=== PATIENT | male | born 1950 | race Caucasian/White ===

== ENCOUNTER 2021-03-11 11:30 | Inpatient (IN) | payer MEDICARE, OTHER ==
[~2021-03-11] VITALS: Ht 172.7 cm; Wt 83.9 kg
[2021-03-11] MEDS ORDERED: SODIUM CHLORIDE 0.9% 1,000 ML IV ONE (11:45)
[2021-03-11 13:12] LABS: HEMATOCRIT. 53.2 % (42.0-52.0); HEMOGLOBIN. 16.7 g/dL (14.0-18.0); MEAN CORPUSCULAR VOLUME 82.8 fL (80.0-94.0); MEAN PLATELET VOLUME 8.8 fl (7.4-10.4); PLATELET 636 x1000/uL (130-400); RED BLOOD CELL COUNT 6.42 mill/uL (4.7-6.1); RED CELL DISTRIBUTION WIDTH 15.2 % (11.6-14.6)
[2021-03-11 13:12] LABS: CLARITY URINE CLEAR (CLEAR); COLOR URINE DARK YELLOW (YELLOW); KETONES URINE 1+ (NEGATIVE); LEUKOCYTE ESTERASE URINE NEGATIVE (NEGATIVE); NITRITE URINE NEGATIVE (NEGATIVE); OCCULT BLOOD URINE NEGATIVE (NEGATIVE); PROTEIN URINE 1+ (NEGATIVE); SPECIFIC GRAVITY URINE 1.027 (1.005-1.030)
[2021-03-11 13:36] LABS: PLATELET ESTIMATE INCREASED
[2021-03-11 13:41] LABS: *AMPHETAMINES SCREEN URINE NEGATIVE (NEGATIVE); *BARBITURATES SCREEN URINE NEGATIVE (NEGATIVE)
[2021-03-11 13:42] LABS: *BENZODIAZEPINES SCREEN URINE NEGATIVE (NEGATIVE); *COCAINE SCREEN URINE NEGATIVE (NEGATIVE); CANNABINOID URINE SCREEN NEGATIVE (NEGATIVE); METHADONE URINE SCREEN NEGATIVE (NEGATIVE); OPIATES URINE SCREEN NEGATIVE (NEGATIVE); PHENCYCLIDINE URINE SCREEN NEGATIVE (NEGATIVE)
[2021-03-11] MEDS ORDERED: SODIUM CHLORIDE 0.9% 1000ML BAG (SEPSIS BOLUS) IV ONE (15:15)
[2021-03-11] MEDS ORDERED: VANCOMYCIN 1 G PREMIX 200 ML IV NR (15:15)
[2021-03-11] MEDS ORDERED: SODIUM CHLORIDE 0.9% 2,550 ML IV SCH (15:15)
[2021-03-11] MEDS ORDERED: PIPERACILLIN/TAZ 3.375G PREMIX 50 ML IV NR (15:15)
[2021-03-11] MEDS ORDERED: CLONIDINE 0.1MG TABLET PO PRN (16:00)
[2021-03-11] MEDS ORDERED: MAGNESIUM/ALUMINUM HYDROXIDE/SIMETHICONE 30ML UDC PO PRN (16:00)
[2021-03-11] MEDS ORDERED: ACETAMINOPHEN 325MG TABLET PO PRN ×2 (16:00)
[2021-03-11] MEDS ORDERED: ONDANSETRON HCL 4MG/2ML INJ IV PRN (16:00)
[2021-03-11] MEDS ORDERED: HYDROCODONE/ACETAMINOPHEN 5/325MG TABLET PO PRN (16:00)
[2021-03-11] MEDS ORDERED: GUAIFENESIN 200MG/10ML SUGAR FREE UDC PO PRN (16:00)
[2021-03-11] MEDS ORDERED: NALOXONE HCL 0.4MG/ML VIAL IV PRN (16:15)
[2021-03-11 16:46] LABS: CHLORIDE 118 mEq/L (98-107)
[2021-03-11 16:51] LABS: ETHANOL BLOOD < 10 mg/dL
[2021-03-11 16:55] LABS: CREATINE KINASE 563 IU/L (39-308)
[2021-03-11] MEDS: ENOXAPARIN 40MG/0.4ML SYR SUBCUT SCH (17:59)
[2021-03-11] MEDS ORDERED: LORAZEPAM 2MG/ML CPJ IV STA (20:18)
[2021-03-12 05:35] LABS: BASOPHILS % 0.2 % (0.0-2.0); EOSINOPHILS % 0.1 % (0.0-5.0); HEMATOCRIT. 51.5 % (42.0-52.0); HEMOGLOBIN. 16.4 g/dL (14.0-18.0); LYMPHOCYTES % 7.2 % (20.0-50.0); MEAN CORPUSCULAR HEMOGLOBIN 26.1 pg (28.0-32.0); MEAN CORPUSCULAR VOLUME 81.8 fL (80.0-94.0); MEAN PLATELET VOLUME 8.7 fl (7.4-10.4); MONOCYTES % 5.9 % (2.0-8.0); NEUTROPHILS % 86.6 % (40.0-76.0); PLATELET 566 x1000/uL (130-400); RED BLOOD CELL COUNT 6.29 mill/uL (4.7-6.1); RED CELL DISTRIBUTION WIDTH 14.8 % (11.6-14.6)
[2021-03-12 05:43] LABS: PHOSPHORUS 3.2 mg/dL (2.5-4.9)
[2021-03-12] MEDS: ENOXAPARIN 40MG/0.4ML SYR SUBCUT SCH (17:05)
[2021-03-12] MEDS ORDERED: PIPERACILLIN/TAZOBACTAM 3.375 G in DEXTROSE 5% WATER 50 ML IV SCH (23:30)
[2021-03-13] MEDS: VANCOMYCIN 1250MG in DEXTROSE 5% WATER 250ML IV SCH ×2 (02:47→21:28)
[2021-03-13 04:00] VITALS: BP 153/84
[2021-03-13 05:29] VITALS: BP 153/84
[2021-03-13 05:58] LABS: VITAMIN B12 SERUM 681 pg/mL (211-911)
[2021-03-13] MEDS: PIPERACILLIN/TAZOBACTAM 3.375 G in DEXTROSE 5% WATER 50 ML IV SCH ×3 (06:36→21:29)
[2021-03-13 08:00] VITALS: BP 140/78
[2021-03-13 12:00] VITALS: BP 149/74
[2021-03-13 16:00] VITALS: BP 127/73
[2021-03-13] MEDS: ENOXAPARIN 40MG/0.4ML SYR SUBCUT SCH (16:13)
[2021-03-13 20:00] VITALS: BP 121/77
[2021-03-14] VITALS: BP 130/77
[2021-03-14 04:00] VITALS: BP 127/75
[2021-03-14] MEDS: PIPERACILLIN/TAZOBACTAM 3.375 G in DEXTROSE 5% WATER 50 ML IV SCH ×2 (05:45→14:07)
[2021-03-14 08:00] VITALS: BP 126/76
[2021-03-14 12:00] VITALS: BP 106/58
[2021-03-14 16:00] VITALS: BP 147/76
[2021-03-14] MEDS: ENOXAPARIN 40MG/0.4ML SYR SUBCUT SCH (16:22)
[2021-03-14 20:00] VITALS: BP 103/59
[2021-03-14] MEDS ORDERED: DEXTROSE 50% WATER 50ML SYRINGE IV PRN (21:30)
[2021-03-14] MEDS: LINEZOLID 600MG TABLET PO SCH (21:40)
[2021-03-14] MEDS: CEFEPIME 2,000 MG in DEXT 5% WATER 100 ML IV SCH (21:40)
[2021-03-14] MEDS: DEXTROSE 5% WATER 1,000 ML IV SCH (21:42)
[2021-03-14] MEDS: BLOOD SUGAR DIAGNOSTIC STRIP TEST SCH (23:02)
[2021-03-14] MEDS: INSULIN LISPRO 100 UNITS/ML SUBCUT SCH (23:23)
[2021-03-15] VITALS: BP 124/67
[2021-03-15 04:00] VITALS: BP 129/61
[2021-03-15] MEDS: INSULIN LISPRO 100 UNITS/ML SUBCUT SCH ×4 (05:25→21:50)
[2021-03-15] MEDS: BLOOD SUGAR DIAGNOSTIC STRIP TEST SCH ×4 (05:26→21:39)
[2021-03-15] MEDS ORDERED: VANCOMYCIN 750 MG in DEXT 5% WATER 250 ML IV SCH (06:00)
[2021-03-15 08:00] VITALS: BP 133/70
[2021-03-15] MEDS: CEFEPIME 2,000 MG in DEXT 5% WATER 100 ML IV SCH ×2 (09:48→21:39)
[2021-03-15] MEDS: LINEZOLID 600MG TABLET PO SCH ×2 (09:48→21:42)
[2021-03-15] MEDS: DEXTROSE 5% WATER 1,000 ML IV SCH ×2 (09:50→17:45)
[2021-03-15 10:59] LABS: BASOPHILS % 0.6 % (0.0-2.0); EOSINOPHILS % 1.9 % (0.0-5.0); HEMATOCRIT. 47.1 % (42.0-52.0); HEMOGLOBIN. 14.9 g/dL (14.0-18.0); LYMPHOCYTES % 12.2 % (20.0-50.0); MEAN CORPUSCULAR VOLUME 82.1 fL (80.0-94.0); MEAN PLATELET VOLUME 9.2 fl (7.4-10.4); MONOCYTES % 6.2 % (2.0-8.0); NEUTROPHILS % 79.1 % (40.0-76.0); PLATELET 531 x1000/uL (130-400); RED BLOOD CELL COUNT 5.73 mill/uL (4.7-6.1); RED CELL DISTRIBUTION WIDTH 14.8 % (11.6-14.6)
[2021-03-15 11:11] LABS: PHOSPHORUS 2.4 mg/dL (2.5-4.9)
[2021-03-15 12:00] VITALS: BP 114/65
[2021-03-15 16:00] VITALS: BP 129/71
[2021-03-15] MEDS: ENOXAPARIN 40MG/0.4ML SYR SUBCUT SCH (16:34)
[2021-03-15 20:00] VITALS: BP 132/67
[2021-03-16] VITALS: BP 117/66
[2021-03-16 04:00] VITALS: BP 123/71
[2021-03-16] MEDS: INSULIN LISPRO 100 UNITS/ML SUBCUT SCH ×4 (05:43→21:21)
[2021-03-16] MEDS: BLOOD SUGAR DIAGNOSTIC STRIP TEST SCH ×4 (05:44→21:17)
[2021-03-16] MEDS: CEFEPIME 2,000 MG in DEXT 5% WATER 100 ML IV SCH ×2 (09:42→21:19)
[2021-03-16] MEDS: LINEZOLID 600MG TABLET PO SCH ×2 (09:42→21:20)
[2021-03-16 10:36] LABS: BASOPHILS % 0.4 % (0.0-2.0); EOSINOPHILS % 1.8 % (0.0-5.0); HEMATOCRIT. 50.6 % (42.0-52.0); HEMOGLOBIN. 16.3 g/dL (14.0-18.0); LYMPHOCYTES % 9.9 % (20.0-50.0); MEAN CORPUSCULAR HEMOGLOBIN 26.2 pg (28.0-32.0); MEAN CORPUSCULAR VOLUME 81.6 fL (80.0-94.0); MEAN PLATELET VOLUME 9.2 fl (7.4-10.4); MONOCYTES % 6.4 % (2.0-8.0); NEUTROPHILS % 81.5 % (40.0-76.0); PLATELET 445 x1000/uL (130-400); RED CELL DISTRIBUTION WIDTH 14.5 % (11.6-14.6)
[2021-03-16] MEDS ORDERED: ROCURONIUM BROMIDE 10MG/ML VIAL 5ML IV ONE (11:45)
[2021-03-16] MEDS ORDERED: FENTANYL CITRATE/PF 50MCG/ML 2ML VIAL ONE (11:45)
[2021-03-16] MEDS ORDERED: NEOSTIGMINE METHYLSULFATE 1MG/ML 10 ML VIAL ONE (11:46)
[2021-03-16] MEDS ORDERED: PROPOFOL 200MG/20ML VIAL IV ONE (11:46)
[2021-03-16] MEDS ORDERED: MIDAZOLAM HCL 2 MG/2 ML VIAL ONE (11:46)
[2021-03-16] MEDS ORDERED: GLYCOPYRROLATE 0.2 MG/ML 2ML VIAL ONE (11:47)
[2021-03-16] MEDS ORDERED: LABETALOL 5MG/ML SYR 20 MG/4 ML SYRINGE IV PRN (12:15)
[2021-03-16] MEDS ORDERED: ONDANSETRON HCL 4MG/2ML INJ IV PRN (12:15)
[2021-03-16] MEDS ORDERED: MEPERIDINE HCL/PF 25MG/ML CPJ IV PRN (12:15)
[2021-03-16] MEDS ORDERED: POTASSIUM-SODIUM PHOSPHATE POWDER PACKET PO SCH (13:00)
[2021-03-16] MEDS: HYDROMORPHONE HCL/PF 2MG/ML CPJ IV PRN ×2 (13:00→13:09)
[2021-03-16] MEDS ORDERED: DEXAMETHASONE 4MG/ML 1ML VIAL ONE (13:16)
[2021-03-16] MEDS: ENOXAPARIN 40MG/0.4ML SYR SUBCUT SCH (18:20)
[2021-03-16 20:00] VITALS: BP 120/51
[2021-03-17] VITALS: BP 112/6
[2021-03-17 04:00] VITALS: BP 124/68
[2021-03-17] MEDS: BLOOD SUGAR DIAGNOSTIC STRIP TEST SCH ×4 (05:46→21:03)
[2021-03-17] MEDS: INSULIN LISPRO 100 UNITS/ML SUBCUT SCH ×4 (05:49→21:00)
[2021-03-17 08:05] VITALS: BP 141/72
[2021-03-17] MEDS: ZINC SULFATE 220 MG ( 50 ) CAPSULE PO SCH (08:43)
[2021-03-17] MEDS: ASCORBIC ACID 500 MG TABLET PO SCH (08:43)
[2021-03-17] MEDS: CEFEPIME 2,000 MG in DEXT 5% WATER 100 ML IV SCH ×2 (08:44→21:04)
[2021-03-17] MEDS: LINEZOLID 600MG TABLET PO SCH ×2 (08:44→21:03)
[2021-03-17] MEDS ORDERED: POTASSIUM-SODIUM PHOSPHATE POWDER PACKET PO NR (09:00)
[2021-03-17 12:45] VITALS: BP 108/65
[2021-03-17 16:17] VITALS: BP 99/75
[2021-03-17] MEDS: ENOXAPARIN 40MG/0.4ML SYR SUBCUT SCH (17:08)
[2021-03-17 20:00] VITALS: BP 133/61
[2021-03-18] VITALS: BP 140/67
[2021-03-18 04:00] VITALS: BP 143/59
[2021-03-18] MEDS: INSULIN LISPRO 100 UNITS/ML SUBCUT SCH ×4 (07:30→20:24)
[2021-03-18] MEDS: BLOOD SUGAR DIAGNOSTIC STRIP TEST SCH ×4 (07:30→20:25)
[2021-03-18 08:09] VITALS: BP 127/63
[2021-03-18] MEDS: ASCORBIC ACID 500 MG TABLET PO SCH (08:37)
[2021-03-18] MEDS: ZINC SULFATE 220 MG ( 50 ) CAPSULE PO SCH (08:37)
[2021-03-18] MEDS: LINEZOLID 600MG TABLET PO SCH ×2 (08:37→20:25)
[2021-03-18] MEDS: CEFEPIME 2,000 MG in DEXT 5% WATER 100 ML IV SCH ×2 (08:37→20:22)
[2021-03-18 08:40] LABS: BASOPHILS % 0.2 % (0.0-2.0); EOSINOPHILS % 1.5 % (0.0-5.0); HEMATOCRIT. 44.9 % (42.0-52.0); HEMOGLOBIN. 14.4 g/dL (14.0-18.0); LYMPHOCYTES % 9.6 % (20.0-50.0); MEAN CORPUSCULAR HEMOGLOBIN 25.8 pg (28.0-32.0); MEAN CORPUSCULAR VOLUME 80.7 fL (80.0-94.0); MEAN PLATELET VOLUME 9.4 fl (7.4-10.4); MONOCYTES % 7.4 % (2.0-8.0); NEUTROPHILS % 81.3 % (40.0-76.0); PLATELET 406 x1000/uL (130-400); RED BLOOD CELL COUNT 5.56 mill/uL (4.7-6.1); RED CELL DISTRIBUTION WIDTH 14.5 % (11.6-14.6)
[2021-03-18 08:55] LABS: CHLORIDE 113 mEq/L (98-107)
[2021-03-18 09:06] LABS: PHOSPHORUS 1.8 mg/dL (2.5-4.9)
[2021-03-18] MEDS ORDERED: POTASSIUM-SODIUM PHOSPHATE POWDER PACKET PO NR (11:00)
[2021-03-18 12:00] VITALS: BP 113/65
[2021-03-18 16:08] VITALS: BP 107/51
[2021-03-18] MEDS: ENOXAPARIN 40MG/0.4ML SYR SUBCUT SCH (16:47)
[2021-03-18 20:00] VITALS: BP 127/85
[2021-03-19] VITALS: BP 139/68
[2021-03-19 04:00] VITALS: BP 141/69
[2021-03-19] MEDS: INSULIN LISPRO 100 UNITS/ML SUBCUT SCH ×4 (06:47→20:50)
[2021-03-19] MEDS: BLOOD SUGAR DIAGNOSTIC STRIP TEST SCH ×4 (06:47→20:46)
[2021-03-19 08:22] LABS: CHLORIDE 109 mEq/L (98-107)
[2021-03-19 08:31] LABS: BASOPHILS % 0.3 % (0.0-2.0); EOSINOPHILS % 1.3 % (0.0-5.0); HEMATOCRIT. 43.6 % (42.0-52.0); HEMOGLOBIN. 14.3 g/dL (14.0-18.0); LYMPHOCYTES % 10.1 % (20.0-50.0); MEAN CORPUSCULAR HEMOGLOBIN 26.4 pg (28.0-32.0); MEAN CORPUSCULAR VOLUME 80.1 fL (80.0-94.0); MEAN PLATELET VOLUME 9.7 fl (7.4-10.4); MONOCYTES % 6.5 % (2.0-8.0); NEUTROPHILS % 81.8 % (40.0-76.0); PHOSPHORUS 1.8 mg/dL (2.5-4.9); PLATELET 382 x1000/uL (130-400); RED BLOOD CELL COUNT 5.44 mill/uL (4.7-6.1); RED CELL DISTRIBUTION WIDTH 14.1 % (11.6-14.6)
[2021-03-19] MEDS ORDERED: POTASSIUM-SODIUM PHOSPHATE POWDER PACKET PO NR (09:45)
[2021-03-19] MEDS: ASCORBIC ACID 500 MG TABLET PO SCH (10:01)
[2021-03-19] MEDS: CEFEPIME 2,000 MG in DEXT 5% WATER 100 ML IV SCH (10:01)
[2021-03-19] MEDS: ZINC SULFATE 220 MG ( 50 ) CAPSULE PO SCH (10:01)
[2021-03-19] MEDS: LINEZOLID 600MG TABLET PO SCH ×2 (10:01→20:38)
[2021-03-19] MEDS: ENOXAPARIN 40MG/0.4ML SYR SUBCUT SCH (19:35)
[2021-03-19 20:00] VITALS: BP 119/70
[2021-03-20] VITALS: BP 115/67
[2021-03-20 04:00] VITALS: BP 109/70
[2021-03-20] MEDS: BLOOD SUGAR DIAGNOSTIC STRIP TEST SCH ×4 (06:07→20:37)
[2021-03-20] MEDS: INSULIN LISPRO 100 UNITS/ML SUBCUT SCH ×4 (06:09→20:36)
[2021-03-20 08:30] VITALS: BP 104/68
[2021-03-20] MEDS: ZINC SULFATE 220 MG ( 50 ) CAPSULE PO SCH (08:46)
[2021-03-20] MEDS: ASCORBIC ACID 500 MG TABLET PO SCH (08:46)
[2021-03-20 11:34] VITALS: BP 122/67
[2021-03-20 15:41] VITALS: BP 127/74
[2021-03-20] MEDS: ENOXAPARIN 40MG/0.4ML SYR SUBCUT SCH (16:58)
[2021-03-20 20:00] VITALS: BP 143/72
[2021-03-21] VITALS: BP 123/75
[2021-03-21 04:00] VITALS: BP 145/80
[2021-03-21] MEDS: INSULIN LISPRO 100 UNITS/ML SUBCUT SCH ×4 (06:24→21:46)
[2021-03-21] MEDS: BLOOD SUGAR DIAGNOSTIC STRIP TEST SCH ×4 (06:24→21:41)
[2021-03-21 07:11] LABS: BASOPHILS % 0.4 % (0.0-2.0); EOSINOPHILS % 1.6 % (0.0-5.0); HEMATOCRIT. 43.2 % (42.0-52.0); HEMOGLOBIN. 14.3 g/dL (14.0-18.0); LYMPHOCYTES % 9.8 % (20.0-50.0); MEAN CORPUSCULAR HEMOGLOBIN 26.6 pg (28.0-32.0); MEAN PLATELET VOLUME 9.5 fl (7.4-10.4); MONOCYTES % 6.9 % (2.0-8.0); NEUTROPHILS % 81.3 % (40.0-76.0); PLATELET 354 x1000/uL (130-400); RED CELL DISTRIBUTION WIDTH 14.2 % (11.6-14.6)
[2021-03-21 08:00] VITALS: BP 115/76
[2021-03-21 08:41] LABS: CHLORIDE 111 mEq/L (98-107)
[2021-03-21 08:46] LABS: PHOSPHORUS 1.6 mg/dL (2.5-4.9)
[2021-03-21] MEDS: ASCORBIC ACID 500 MG TABLET PO SCH (09:48)
[2021-03-21] MEDS: ZINC SULFATE 220 MG ( 50 ) CAPSULE PO SCH (09:48)
[2021-03-21 12:00] VITALS: BP 124/78
[2021-03-21] MEDS ORDERED: POTASSIUM-SODIUM PHOSPHATE POWDER PACKET PO NR (14:30)
[2021-03-21 16:00] VITALS: BP 122/78
[2021-03-21] MEDS: ENOXAPARIN 40MG/0.4ML SYR SUBCUT SCH (18:03)
[2021-03-21 20:00] VITALS: BP 120/80
[2021-03-22] VITALS: BP 133/75
[2021-03-22 04:00] VITALS: BP 127/68
[2021-03-22 05:16] LABS: BASOPHILS % 0.4 % (0.0-2.0); EOSINOPHILS % 1.4 % (0.0-5.0); HEMATOCRIT. 43.8 % (42.0-52.0); HEMOGLOBIN. 14.6 g/dL (14.0-18.0); LYMPHOCYTES % 11.1 % (20.0-50.0); MEAN CORPUSCULAR HEMOGLOBIN 26.7 pg (28.0-32.0); MEAN CORPUSCULAR VOLUME 80.3 fL (80.0-94.0); MEAN PLATELET VOLUME 9.7 fl (7.4-10.4); MONOCYTES % 8.1 % (2.0-8.0); PLATELET 310 x1000/uL (130-400); RED BLOOD CELL COUNT 5.45 mill/uL (4.7-6.1); RED CELL DISTRIBUTION WIDTH 14.5 % (11.6-14.6)
[2021-03-22 05:31] LABS: CHLORIDE 107 mEq/L (98-107)
[2021-03-22 05:40] LABS: PHOSPHORUS 2.4 mg/dL (2.5-4.9)
[2021-03-22] MEDS: BLOOD SUGAR DIAGNOSTIC STRIP TEST SCH ×4 (07:07→21:12)
[2021-03-22] MEDS: INSULIN LISPRO 100 UNITS/ML SUBCUT SCH ×4 (07:50→21:00)
[2021-03-22 08:00] VITALS: BP 127/78
[2021-03-22] MEDS: ZINC SULFATE 220 MG ( 50 ) CAPSULE PO SCH (08:05)
[2021-03-22] MEDS: ASCORBIC ACID 500 MG TABLET PO SCH (08:05)
[2021-03-22 12:00] VITALS: BP 125/67
[2021-03-22 16:00] VITALS: BP 122/67
[2021-03-22] MEDS: ENOXAPARIN 40MG/0.4ML SYR SUBCUT SCH (17:14)
[2021-03-22 20:00] VITALS: BP 118/67
[2021-03-23] VITALS (9 sets, daily range): BP systolic 112–152; BP diastolic 56–83
[2021-03-23] MEDS: BLOOD SUGAR DIAGNOSTIC STRIP TEST SCH ×4 (06:46→21:07)
[2021-03-23] MEDS: ZINC SULFATE 220 MG ( 50 ) CAPSULE PO SCH (09:09)
[2021-03-23] MEDS: ASCORBIC ACID 500 MG TABLET PO SCH (09:09)
[2021-03-23] MEDS: INSULIN LISPRO 100 UNITS/ML SUBCUT SCH ×4 (09:19→21:11)
[2021-03-23] MEDS: ENOXAPARIN 40MG/0.4ML SYR SUBCUT SCH (17:29)
[2021-03-23] MEDS ORDERED: TOPUD PO (18:40)
[2021-03-23] MEDS ORDERED: ASCO500T20 PO (18:40)
[2021-03-23] MEDS ORDERED: LOV40 SUBCUT (18:40)
[2021-03-23] MEDS ORDERED: ZINC220C2 PO (18:40)
[2021-03-23] MEDS ORDERED: [UNRECOGNIZED DRUG - CODE] PO (18:40)
== END 2021-03-23 21:51 | DRG 853 ==
LOC: ER 11:52 → SUPCPDRO 15:37 → 8WST 03-12 14:16 → ENRESERV 03-13 04:53 → 6EST 03-21 15:11
PROVIDERS: ADMIT Internal Medicine; ATTEND Internal Medicine
PROC: 0JB70ZZ Excision of Back Subcutaneous Tissue and Fascia, Open Approach (ICD-10-PCS; principal; 2021-03-16)
PROC: 4A10X4Z Monitoring of Central Nervous Electrical Activity, External Approach (ICD-10-PCS; 2021-03-17)
DX: A41.9 Sepsis, unspecified organism (principal); L89.154 Pressure ulcer of sacral region, stage 4; G93.41 Metabolic encephalopathy; G91.9 Hydrocephalus, unspecified; E87.0 Hyperosmolality and hypernatremia; N17.9 Acute kidney failure, unspecified; E46 Unspecified protein-calorie malnutrition; Z20.822 Contact with and (suspected) exposure to COVID-19; R65.20 Severe sepsis without septic shock; F03.90 Unspecified dementia, unspecified severity, without behavioral disturbance, psychotic disturbance, mood disturbance, and anxiety; E83.39 Other disorders of phosphorus metabolism; L89.100 Pressure ulcer of unspecified part of back, unstageable; Z68.28 Body mass index [BMI] 28.0-28.9, adult
CPT/HCPCS: 36415; 80048; 80053; 80202; 80305; 80320; 81003; 82040; 82140; 82550; 82607; 82962; 83036; 83605; 83735; 84100; 84134; 84145; 84443; 84484; 85025; 87426; 88304; 88312; 92610; 93005; 95816; 97110; 97116; 97162; 97166; 97530; 99291; J0692; J1100; J1170; J1650; J1815; J2060; J2250; J2405; J2543; J2704; J2710; J3010; J3370; J3490; J7030; J7040; J7060; J7070; G0480